=== PATIENT | male | born 1990 | race Caucasian/White ===

== ENCOUNTER 2019-12-19 11:01 | Emergency (ER) | payer OTHER ==
[~2019-12-19] VITALS: Ht 177.8 cm; Wt 66.2 kg
--- NOTE | 2019-12-19 11:05 | NUR ---
PT [place] FROM [place] STRE[place], PER EMS PT WAS OUTSIDE OF A [facility] AND WAS REFUSING TO LEAVE THE PROPERTY, BYSTANDER CONCERN ABOUT HEROIN USE. UPON ARRIVAL PT WAS VERBALLY RESPONSIVE. ADMITS TO TAKING "METH." STABLE VITALS, AFEBRILE PROJECT CONTROL MANAGER. AWAITING MD HOLMAN.
--- NOTE | 2019-12-19 12:08 | NUR ---
PATIENT PROVIDED W/ MEAL TRAY.
--- NOTE | 2019-12-19 12:29 | NUR ---
PT PROVIDED W/ HOMELESS INTERMEDIATE REFFERALS.
--- NOTE | 2019-12-19 12:33 | NUR ---
REFUSED TO SIGN HOMELESS WAIVER AND ACI. AMBULATORY W/ STEADY GAIT. WAS PROVIDED W/ LUNCH TRAY D/C IN STABLE CONDITION.
[2019-12-19 12:35] VITALS: BP 115/60
== END 2019-12-19 12:35 | disposition home or self-care (01) ==
LOC: ER 11:03
DX: F15.90 Other stimulant use, unspecified, uncomplicated (principal); G10 Huntington's disease; Z59.0 Homelessness

== ENCOUNTER 2019-12-21 11:51 | Emergency (ER) | payer OTHER ==
[~2019-12-21] VITALS: Ht 172.7 cm; Wt 68.0 kg
--- NOTE | 2019-12-21 11:59 | NUR ---
MAYI FROM STREET CALLED IN BY [employer] TO ER BED 13. LETHARGIC OPENS EYES TO VERBAL STIMULI. DOES NOT ANSWER QUESTIONS. PT WAS MIRL[place]DE IN FOR POSSIBLE OVERDOSE OF UNKNOWN SUBSTANCE. BS WAS REPORTED @ 59 BUT NOTED BS @ 89 IN ER, DURING TRIAGE. MD WAS AT BEDSIDE FOR EVAL. AWAITING ORDERS
[2019-12-21 12:23] LABS: BASOPHILS % (AUTO) 0.3 % (0.0-2.0); EOSINOPHILS % (AUTO) 1.9 % (0.0-6.0); HEMATOCRIT 40 % (39-51); HEMOGLOBIN 13.6 g/dL (13.5-17.5); LYMPHOCYTES # (AUTO) 1.8 /CMM (0.8-4.8); MEAN CORPUSCULAR HGB CONC 34 g/dl (31.0-36.0); MEAN CORPUSCULAR VOLUME 90 fL (80-96); MONOCYTES # (AUTO) 0.4 /CMM (0.1-1.30); MONOCYTES % (AUTO) 6.5 % (2.0-12.0); NEUTROPHILS # (AUTO) 4.1 /CMM (1.8-8.9); NEUTROPHILS % (AUTO) 63.3 % (43.0-81.0); PLATELET COUNT (AUTO) 329 /CMM (150-450); RED BLOOD CELL COUNT(AUTO) 4.48 MIL/uL (4.5-6.0); WHITE BLOOD COUNT (AUTO) 6.5 K/uL (4.3-11.0)
[2019-12-21 12:29] LABS: CALCIUM, SERUM 8.3 mg/dL (8.5-10.1); CARBON DIOXIDE 31 mmol/L (21-32); CHLORIDE 106 mmol/L (98-107); CREATININE 0.7 mg/dL (0.6-1.3); GLUCOSE 97 mg/dL (74-106); POTASSIUM 4.1 mmol/L (3.5-5.1); SODIUM SERUM 140 mmol/L (136-145); UREA NITROGEN, BLOOD 6 mg/dL (7-18)
[2019-12-21 12:35] LABS: ACETAMINOPHEN 0 ug/ml (10-30); ALANINE AMINOTRANSFERASE 57 U/L (12-78); ALBUMIN 3.2 g/dL (3.4-5.0); ALCOHOL, BLOOD < 3 mg/dL (0-0); ALKALINE PHOSPHATASE 65 U/L (46-116); ASPARTATE AMINOTRANSFERASE 30 U/L (15-37); BILIRUBIN,DIRECT 0.1 mg/dL (0.0-0.2); BILIRUBIN,TOTAL 0.2 mg/dL (0.2-1.0); SALICYLATE 1.5 mg/dL (2.8-20.0); TOTAL PROTEIN, SERUM 6.5 g/dL (6.4-8.2)
[2019-12-21 13:00] LABS: APPEARANCE,URINE Clear (CLEAR); BILIRUBIN,URINE Negative (NEGATIVE); BLOOD, URINE Trace-intact Ery/uL (NEGATIVE); COLOR,URINE Yellow (YELLOW); KETONES,URINE Negative (NEGATIVE); LEUKOCYTE ESTERASE ,URINE Negative (NEGATIVE); NITRITE, URINE Negative (NEGATIVE); PH,URINE 8.5 (5.0-8.0); PROTEIN,URINE Negative (NEGATIVE); UGLUCOSE Negative (NEGATIVE)
--- NOTE | 2019-12-21 13:02 | NUR ---
PT PROVIDED WITH MEAL.
[2019-12-21 13:03] LABS: BACTERIA,URINE None seen /HPF (None Seen); RBC,URINE 0-2 /HPF (0-2); SQUAMOUS EPITHELIAL CELL,UR Rare /HPF (None Seen); WBC,URINE 0-2 /HPF (0-3)
--- NOTE | 2019-12-21 15:12 | NUR ---
PT IN BED SLEEPING NAD NOTED.
--- NOTE | 2019-12-21 17:20 | NUR ---
PT WAS AMBULATED. PT IS ABLE TO AMBULATE ON HIS OWN WITH ANY ASSISTANCE.
--- NOTE | 2019-12-21 17:56 | NUR ---
Patient discharged to home in stable condition. Written and verbal after care instructions given. Patient verbalizes understanding of instruction. Pt ambulatory with a steady gait
[2019-12-21 18:43] VITALS: BP 117/75
== END 2019-12-21 18:44 | disposition home or self-care (01) ==
LOC: ER 11:52
DX: R41.82 Altered mental status, unspecified (principal); E16.2 Hypoglycemia, unspecified; R94.31 Abnormal electrocardiogram [ECG] [EKG]; Z59.0 Homelessness
CPT/HCPCS: 36415; 71045; 80048; 80076; 80305; 80307; 80329; 81001; 84484; 85025; 93005; 99285; G0480; 81000-TC

== ENCOUNTER 2020-05-09 15:31 | Emergency (ER) | payer OTHER ==
[~2020-05-09] VITALS: Ht 172.7 cm; Wt 67.6 kg
[2020-05-09] MEDS ORDERED: HALOPERIDOL LACTATE INJ 5 MG/ML VIAL ONE (16:00)
[2020-05-09] MEDS ORDERED: HALOPERIDOL LACTATE INJ 5 MG/ML VIAL IM ONE (16:00)
[2020-05-09] MEDS ORDERED: LORAZEPAM INJ 2 MG/ML VIAL IM ONE (16:00)
[2020-05-09] MEDS ORDERED: LORAZEPAM INJ 2 MG/ML VIAL ONE (16:00)
--- NOTE | 2020-05-09 17:03 | NUR ---
MAYI FROM STREET TO ER BED 14. AWAKE, ALERT AND ABLE TO FOLLOW COMMAND. NOT IN RESP DISTRESS, BREATHING EVEN AND UNLABORED. BROUGHT IN FOR BIZAARE BEHAVIOR, PT WAS FOUND RUNING AROUND THE STREET. UPON PRESENTATION, PT IS NOTED RESTLESS. WAS AT THE BEDSIDE FOR EVAL. ORDERS RECEIVED NOTED AND CARRIED OUT. BLOOD DRAWN AND GIVEN TO BLENDING PLANT OPERATOR
[2020-05-09 17:21] LABS: BASOPHILS % (AUTO) 0.5 % (0.0-2.0); EOSINOPHILS % (AUTO) 2.1 % (0.0-6.0); HEMATOCRIT 39 % (39-51); HEMOGLOBIN 13.1 g/dL (13.5-17.5); LYMPHOCYTES # (AUTO) 1.9 /CMM (0.8-4.8); LYMPHOCYTES % (AUTO) 26.7 % (20.0-44.0); MEAN CORPUSCULAR HGB CONC 34 g/dl (31.0-36.0); MEAN CORPUSCULAR VOLUME 88 fL (80-96); MONOCYTES # (AUTO) 0.6 /CMM (0.1-1.30); MONOCYTES % (AUTO) 8.5 % (2.0-12.0); NEUTROPHILS # (AUTO) 4.5 /CMM (1.8-8.9); NEUTROPHILS % (AUTO) 62.2 % (43.0-81.0); PLATELET COUNT (AUTO) 296 /CMM (150-450); RED BLOOD CELL COUNT(AUTO) 4.41 MIL/uL (4.5-6.0); WHITE BLOOD COUNT (AUTO) 7.2 K/uL (4.3-11.0)
[2020-05-09 17:29] LABS: ALANINE AMINOTRANSFERASE 45 U/L (12-78); ALBUMIN 3.5 g/dL (3.4-5.0); ALCOHOL, BLOOD < 3 mg/dL (0-0); ALKALINE PHOSPHATASE 75 U/L (46-116); ASPARTATE AMINOTRANSFERASE 50 U/L (15-37); BILIRUBIN,DIRECT 0.1 mg/dL (0.0-0.2); BILIRUBIN,TOTAL 0.3 mg/dL (0.2-1.0); CALCIUM, SERUM 8.7 mg/dL (8.5-10.1); CARBON DIOXIDE 29 mmol/L (21-32); CHLORIDE 103 mmol/L (98-107); GLUCOSE 67 mg/dL (74-106); POTASSIUM 3.5 mmol/L (3.5-5.1); SODIUM SERUM 140 mmol/L (136-145); TOTAL PROTEIN, SERUM 7.1 g/dL (6.4-8.2); UREA NITROGEN, BLOOD 15 mg/dL (7-18)
[2020-05-09 17:31] LABS: ACETAMINOPHEN 0 ug/ml (10-30)
--- NOTE | 2020-05-09 19:01 | NUR ---
PT IN BED SLEEPING AND RESTING COMFORTABLY
--- NOTE | 2020-05-09 21:36 | NUR ---
PT IN BED SLEEPING . NAD NOTED. BREATHING EVEN AND UNLABORED
--- NOTE | 2020-05-10 02:11 | NUR ---
Patient discharged to home in stable condition. Written and verbal after care instructions given. Patient verbalizes understanding of instruction. Pt ambulated with steady gait. vss. Given food. Refused to sign homeless waiver.
[2020-05-10 02:12] VITALS: BP 109/65
== END 2020-05-10 02:12 | disposition home or self-care (01) ==
LOC: ER 15:31
DX: F28 Other psychotic disorder not due to a substance or known physiological condition (principal); R45.1 Restlessness and agitation; Z86.19 Personal history of other infectious and parasitic diseases; Z59.0 Homelessness
CPT/HCPCS: 36415; 80048; 80076; 80299; 80307; 80320; 85025; 96372 ×2; 99285; J1630; J2060; G0480

== ENCOUNTER 2020-05-26 10:23 | Emergency (ER) | payer OTHER ==
[~2020-05-26] VITALS: Ht 170.2 cm; Wt 68.0 kg
--- NOTE | 2020-05-26 10:30 | NUR ---
BIBRA [address] found in the parking lot for meth use, BS=92MG/DL. Patient a/ox4, breathing even and unlabored, no sob noted, needs attended, kept comfortable. aAttached to the tie bucker.
--- NOTE | 2020-05-26 10:47 | NUR ---
pt out for CT
--- NOTE | 2020-05-26 12:00 | NUR ---
Patient provided food tray, resting no distress noted.
--- NOTE | 2020-05-26 13:55 | NUR ---
ISABEL received a call from engraver ornamental design [employer] and ED SHARON Cuellar regarding clothing for this patient. SW provided the patient with a change of clothes.
--- NOTE | 2020-05-26 14:01 | NUR ---
PATIENT A/OX4, AMBULATORY WITH STEADY GAIT. BREATHING EVEN AND UNLABORED, NO SOB NOTED, NEEDS ATTENDED, CLOTHES PROVIDED. Patient given written and verbal discharge instructions. Patient verbalizes understanding of instructions. Patient is ambulatory with steady gait. Refuses offer of retirement placement. Patient given list of available shelters in surrounding area.
[2020-05-26 14:04] VITALS: BP 142/95
== END 2020-05-26 14:04 | disposition home or self-care (01) ==
LOC: ER 10:25
DX: F15.10 Other stimulant abuse, uncomplicated (principal); R51.9 Headache, unspecified; Z59.0 Homelessness
CPT/HCPCS: 70450-TC